=== PATIENT | female | born 1970 | race Two or more races ===

== ENCOUNTER → 2017-04-08 | Outpatient (CLI) | payer OTHER ==
--- NOTE | 2017-04-12 11:08 | CPEEG ---
[f rep st] ELECTROENCEPHALOGRAM FOUR HOUR VIDEO EEG DATE OF STUDY: 04/08/2017 DATE OF INTERPRETATION: 04/12/2017. INTERPRETATION: This 4-hour video EEG recording is abnormal due to the presence of a moderate degree of diffuse nonspecific slowing and multifocal sharply contoured waveforms of uncertain clinical significance, maximal over the left temporal head region. These findings are consistent with a moderate diffuse disturbance of cerebral function and a probable symptomatic seizure disorder. The patient did not have any clinical events during the video EEG monitoring session. REPORT: This 4-hour video EEG contains 8-9 Hz alpha activity over the posterior head regions during times of maximal alertness. There were periods of relative normalcy in the background activity. However, there were intermittent bursts of diffuse nonspecific slowing composed of mixed frequencies including theta frequency activity and moderate amplitude delta frequency activity. These occurred at rest and increased during drowsiness. There was no specific abnormal epileptiform activation with photic stimulation and hyperventilation. In addition, there were multifocal, sharply contoured waveforms of uncertain clinical significance present during the recording, maximal over the left frontotemporal head regions. They were more prominent during drowsiness and sleep. There was no definite abnormal epileptiform activation present during the awake or sleep recordings. The patient did not have any clinical events during the video EEG monitoring session. /[id number]/MODL MTDD
== END ==
LOC: FCPNEURO 08:56
PROVIDERS: ATTEND Psychiatry & Neurology Neurology
DX: R94.01 Abnormal electroencephalogram [EEG] (principal); G40.909 Epilepsy, unspecified, not intractable, without status epilepticus

== ENCOUNTER → 2017-04-13 | Outpatient (CLI) | payer OTHER | LOC: FIMAGING 11:32 | PROVIDERS: ATTEND Psychiatry & Neurology Neurology | DX: G40.909 Epilepsy, unspecified, not intractable, without status epilepticus (principal) ==